=== PATIENT | male | born 1965 | race Caucasian/White ===

== ENCOUNTER 2019-02-12 12:53 | Emergency (ER) | payer MEDICARE, OTHER ==
[~2019-02-12] VITALS: Ht 180.3 cm; Wt 98.6 kg
[2019-02-12] MEDS ORDERED: morphine SULFATE 15 MG TAB.IR PO ONE (14:30)
[2019-02-12] MEDS ORDERED: HYDROmorphone 2 MG/ML, 1ML IM ONE (14:30)
[2019-02-12] MEDS ORDERED: MORP30TA81 PO (14:34)
--- NOTE | 2019-02-12 14:35 | NUR ---
FIRST CONTACT WITH PT. PT REPORTS HE HAS A 10/10 PAIN AND HAS SUFFERED FROM CHRONIC BACK PAIN FOR 20 YEARS. [place]. NASH.
--- NOTE | 2019-02-12 14:45 | NUR ---
PT REPORTS A 10/10 PAIN. PT IS UPSET BECAUSE HE CANNOT FIND A DR TO PRESCRIBE HIM ATIVAN. I ATTEMPTED TO EDUCATE PT REGARDING RESP DEPRESSION FROM COMBINING MORPHINE AND ATIVAN, PT REFUSED TEACHING. NO OBJECTIVE SIGNS OF PAIN.
[2019-02-12] MEDS ORDERED: HYDROmorphone 2 MG/ML, 1ML ONE (15:03)
[2019-02-12 15:08] VITALS: BP 119/89
== END 2019-02-12 15:14 | disposition home or self-care (01) ==
LOC: ED 15:08
DX: M54.5 Low back pain (principal); G89.29 Other chronic pain; F17.200 Nicotine dependence, unspecified, uncomplicated; Z88.9 Allergy status to unspecified drugs, medicaments and biological substances; Z88.6 Allergy status to analgesic agent; Z88.2 Allergy status to sulfonamides; Z88.5 Allergy status to narcotic agent
CPT/HCPCS: 96372; 99283; J1170

== ENCOUNTER 2019-02-20 13:52 | Emergency (ER) | payer OTHER ==
[~2019-02-20] VITALS: Ht 180.3 cm; Wt 99.8 kg
[2019-02-20 15:51] VITALS: BP 149/98
== END 2019-02-20 16:40 | disposition home or self-care (01) ==
LOC: ED 15:20
DX: F41.1 Generalized anxiety disorder (principal); M54.9 Dorsalgia, unspecified; G89.29 Other chronic pain
CPT/HCPCS: 96372; 99284; J1170

== ENCOUNTER 2019-02-23 12:41 | Emergency (ER) | payer OTHER ==
[~2019-02-23] VITALS: Ht 180.3 cm; Wt 99.0 kg
[2019-02-23 12:44] VITALS: BP 170/99
== END 2019-02-23 13:54 | disposition home or self-care (01) ==
LOC: ED 13:40
DX: S39.012A Strain of muscle, fascia and tendon of lower back, initial encounter (principal); G89.29 Other chronic pain; F41.1 Generalized anxiety disorder; X58.XXXA Exposure to other specified factors, initial encounter; Y93.89 Activity, other specified; Y92.89 Other specified places as the place of occurrence of the external cause; Y99.8 Other external cause status
CPT/HCPCS: 96372; 99283; J1170

== ENCOUNTER 2019-02-23 19:47 | Emergency (ER) | payer OTHER ==
[~2019-02-23] VITALS: Ht 180.3 cm; Wt 100.0 kg
[2019-02-23 19:49] VITALS: BP 140/89
== END 2019-02-23 22:47 | disposition home or self-care (01) ==
LOC: ED 22:23
DX: M51.36 Other intervertebral disc degeneration, lumbar region (principal); M54.42 Lumbago with sciatica, left side; M54.41 Lumbago with sciatica, right side; G89.11 Acute pain due to trauma; F41.1 Generalized anxiety disorder; F17.200 Nicotine dependence, unspecified, uncomplicated
CPT/HCPCS: 72148; 96372; 99284; J1170; J2930; Q0162

== ENCOUNTER 2019-02-24 14:07 | Emergency (ER) | payer OTHER ==
[~2019-02-24] VITALS: Ht 180.3 cm; Wt 100.0 kg
[~2019-02-24 14:07] MED LIST: MORP30TA81 PO
--- NOTE | 2019-02-24 14:15 | NUR ---
Patient called for triage, no answer
[2019-02-24 14:22] VITALS: BP 135/94
--- NOTE | 2019-02-24 15:00 | NUR ---
IMPORT AND EXPORT CLERK: PT AMBULATORY TO ED ROOM 23 FROM [facility] IN [facility] AT THIS TIME
[2019-02-24] MEDS ORDERED: HYDROmorphone 2 MG/ML, 1ML IM ONE (16:00)
[2019-02-24] MEDS ORDERED: HYDROmorphone 1 MG/ML, 1ML VIAL ONE (16:02)
[2019-04-24] MEDS ORDERED: LORA-446 PO (18:56)
== END 2019-02-24 16:59 | disposition home or self-care (01) ==
LOC: ED 16:05
DX: M51.16 Intervertebral disc disorders with radiculopathy, lumbar region (principal); M48.061 Spinal stenosis, lumbar region without neurogenic claudication; F41.1 Generalized anxiety disorder; G89.29 Other chronic pain; F17.200 Nicotine dependence, unspecified, uncomplicated
CPT/HCPCS: 93005; 96372; 99283; J1170

== ENCOUNTER 2019-03-09 15:27 | Emergency (ER) | payer OTHER ==
[~2019-03-09] VITALS: Ht 180.3 cm; Wt 102.0 kg
[2019-03-09 15:33] VITALS: BP 173/96
== END 2019-03-09 16:49 | disposition left against medical advice (07) ==
LOC: ED 16:43
DX: M54.5 Low back pain (principal); G89.29 Other chronic pain; F41.1 Generalized anxiety disorder
CPT/HCPCS: 99283

== ENCOUNTER 2019-03-11 22:58 | Emergency (ER) | payer OTHER ==
[~2019-03-11] VITALS: Ht 180.3 cm; Wt 102.1 kg
[2019-03-11 23:04] VITALS: BP 142/96
== END 2019-03-12 03:44 ==
LOC: ED 03-12 03:38
DX: G89.11 Acute pain due to trauma (principal); N50.811 Right testicular pain; N50.812 Left testicular pain; Z72.9 Problem related to lifestyle, unspecified; F17.200 Nicotine dependence, unspecified, uncomplicated; X58.XXXA Exposure to other specified factors, initial encounter; Y93.89 Activity, other specified; Y92.89 Other specified places as the place of occurrence of the external cause; Y99.8 Other external cause status
CPT/HCPCS: 76870; 99284

== ENCOUNTER 2019-06-02 21:56 | Emergency (ER) | payer OTHER ==
[~2019-06-02] VITALS: Ht 180.3 cm; Wt 90.9 kg
[~2019-06-02 21:56] MED LIST changes: +LORA-446 PO
[2019-06-02] MEDS ORDERED: LORazepam 1MG TABLET PO ONE (23:00)
--- NOTE | 2019-06-02 23:00 | NUR ---
PT MEDICATED FOR ANXIETY PER EMAR FOR MRI
[2019-06-02] MEDS ORDERED: GADOTERATE 10 MMOL/20 ML SYR ONE (23:07)
[2019-06-02] MEDS ORDERED: LORazepam 1MG TABLET ONE (23:15)
[2019-06-02 23:20] VITALS: BP 137/82
--- NOTE | 2019-06-02 23:28 | NUR ---
LISANDRO CJ, TRANSFER FROM [facility]. 05/22/19 EPISODE OF BOWEL AND URINE INCONTENENCE. 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 PAIN BELOW THE WAIST 04/07 Addendum: 06/03/19 at 0052 by KEISHA LISANDRO COR[place], TRANSFER FROM [facility]. 05/22/19 EPISODE OF BOWEL AND URINE INCONTENENCE. 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 PAIN BELOW THE WAIST 04/07
--- NOTE | 2019-06-02 23:29 | NUR ---
BLADDER SCAN INDICATED VOLUME >700ML
[2019-06-03] MEDS ORDERED: ACETAMINOPHEN 325 MG TABLET PO ONE (00:30)
[2019-06-03] MEDS ORDERED: ACETAMINOPHEN 325 MG TABLET ONE (00:32)
--- NOTE | 2019-06-03 00:40 | NUR ---
PT STATES HE IS UNHAPPY WITH DR DUPONT ORDERS. PT HAS REQUESTED TO SPEAK WITH A DIFFERENT PHYSICIAN. ER MD LOWERY NOTIFIED. PT HAS REFUSED TYLENOL AND REFUSED INSERTION OF A MEJIA CATHETER. PT STATES HE WANTS TO LEAVE [place]. PAPER WORK PROVIDED.
--- NOTE | 2019-06-03 00:50 | NUR ---
PT SIGNED AMA PAPERWORK. PT WAS VERY UNHAPPY WITH DR LOWERY AND MADE A NOTE ON THE AMA PAPERWORK TO THAT AFFECT. PT ABULATORY WITH A WALKER TO DISCHARGE DESK WITH A STEADY GAIT. PT PROVIDED TAXI CAB VOUCHER BACK TO HIS HOME RESIDENCE.
== END 2019-06-03 00:56 | disposition home or self-care (01) ==
LOC: ED 06-03 00:32
DX: M51.16 Intervertebral disc disorders with radiculopathy, lumbar region (principal); M48.061 Spinal stenosis, lumbar region without neurogenic claudication; R33.9 Retention of urine, unspecified; F17.210 Nicotine dependence, cigarettes, uncomplicated
CPT/HCPCS: 72158; 99284; A9575

== ENCOUNTER 2019-06-05 10:31 | Inpatient (IN) | payer OTHER ==
[~2019-06-05] VITALS: Ht 180.3 cm; Wt 94.7 kg
[2019-06-05] MEDS ORDERED: BISACODYL 10 MG SUPP PR PRN (13:00)
[2019-06-05] MEDS ORDERED: ONDANSETRON ODT 4 MG PO PRN (13:00)
[2019-06-05] MEDS ORDERED: DOCUSATE 100 MG CAPSULE PO PRN (13:00)
[2019-06-05] MEDS ORDERED: ACETAMINOPHEN 325 MG TABLET PO PRN (13:00)
[2019-06-05] MEDS ORDERED: POLYETHYLENE GLYCOL 17 GM PACKET PO PRN (13:00)
[2019-06-05] MEDS ORDERED: LORA2TAB99 PO (15:06)
[2019-06-05] MEDS ORDERED: OXYC30TA PO (15:06)
[2019-06-05] MEDS ORDERED: MORP100T27 PO (15:06)
[2019-06-05] MEDS ORDERED: SERT50TA PO (15:06)
[2019-06-05 15:08] VITALS: BP 122/89
[2019-06-05 15:51] LABS: MICROSCOPIC NOT IND
[2019-06-05 15:54] LABS: CULTURE INDICATED? NO
[2019-06-05] MEDS ORDERED: OXYcodone 5 MG/5 ML ORAL.SOL UDC PO PRN (18:00)
[2019-06-05] MEDS: LORazepam 1MG TABLET PO PRN (18:51)
[2019-06-05 19:09] VITALS: BP 134/80
[2019-06-05 19:10] LABS: CHOL/HDL RATIO 4.3; FREE T4 (FREE THYROXINE) 0.99 ng/dL (0.76-1.46); LDL/HDL RATIO 2.6 (0.5-3.0)
[2019-06-05] MEDS: OXYcodone/APAP 5/325MG TABLET PO PRN (19:32)
[2019-06-06] MEDS: OXYcodone/APAP 5/325MG TABLET PO PRN ×2 (02:40→09:22)
[2019-06-06] MEDS: LORazepam 1MG TABLET PO PRN ×3 (02:40→17:52)
[2019-06-06 07:45] VITALS: BP 125/85
[2019-06-06] MEDS ORDERED: SERTRALINE 50MG TABLET PO SCH (09:00)
[2019-06-06] MEDS: NICOTINE 7 MG/24 HR PATCH.TD24 TD SCH (09:21)
[2019-06-06] MEDS ORDERED: OXYcodone/APAP 5/325MG TABLET PO PRN (14:00)
[2019-06-06] MEDS: OXYcodone/APAP 10/325MG TABLET PO PRN ×2 (14:21→20:31)
[2019-06-06 18:07] LABS: BASOPHILS # (AUTO) 0.09 x10^3/uL (0-0.1); BASOPHILS % (AUTO) 1 % (0-1); EOSINOPHILS # (AUTO) 0.12 x10^3/uL (0-0.4); EOSINOPHILS % (AUTO) 2 % (1-7); LYMPHOCYTES # (AUTO) 2.16 x10^3/uL (1-3.4); LYMPHOCYTES % (AUTO) 31 % (22-44); MD NO; MEAN CORPUSCULAR HEMOGLOBIN 30.5 pg (27.5-34.5); MEAN CORPUSCULAR HGB CONC 33.1 g/dL (33.2-36.2); MEAN CORPUSCULAR VOLUME 92.2 fL (81-97); MEAN PLATELET VOLUME 7.4 fL (7.4-10.4); MONOCYTES # (AUTO) 0.56 x10^3/uL (0.2-0.8); MONOCYTES % (AUTO) 8 % (2-9); NEUTROPHILS # (AUTO) 4.07 x10^3/uL (1.8-6.8); NEUTROPHILS % (AUTO) 58 % (42-75); PLATELET COUNT 390 x10^3/uL (130-400); RED BLOOD COUNT 4.88 x10^6/uL (4.38-5.82); RED CELL DISTRIBUTION WIDTH 14.8 % (9.4-14.8)
[2019-06-06 18:19] LABS: ANION GAP 4 mmol/L (5-15); CALCIUM 8.8 mg/dL (8.5-10.1); CHLORIDE 110 mmol/L (98-107); CREATININE 0.91 mg/dL (0.7-1.3)
[2019-06-06 19:26] VITALS: BP 132/70
[2019-06-06] MEDS: TRAZODONE 100MG TABLET PO SCH (21:25)
[2019-06-07] MEDS: LORazepam 1MG TABLET PO PRN ×2 (04:13→12:23)
[2019-06-07] MEDS: OXYcodone/APAP 10/325MG TABLET PO PRN ×4 (04:13→22:56)
[2019-06-07 07:35] VITALS: BP 102/67
[2019-06-07] MEDS: SERTRALINE 100MG TABLET PO SCH (08:35)
[2019-06-07] MEDS: NICOTINE 7 MG/24 HR PATCH.TD24 TD SCH (08:52)
[2019-06-07 19:51] VITALS: BP 118/75
[2019-06-07] MEDS: TRAZODONE 100MG TABLET PO SCH (20:18)
[2019-06-08] MEDS: OXYcodone/APAP 10/325MG TABLET PO PRN ×3 (06:06→18:04)
[2019-06-08] MEDS: LORazepam 1MG TABLET PO PRN ×3 (06:06→18:02)
[2019-06-08 07:47] VITALS: BP 117/76
[2019-06-08] MEDS: SERTRALINE 100MG TABLET PO SCH (08:46)
[2019-06-08] MEDS: NICOTINE 7 MG/24 HR PATCH.TD24 TD SCH (08:47)
[2019-06-08 19:32] VITALS: BP 106/66
[2019-06-08] MEDS: TRAZODONE 100MG TABLET PO SCH (20:06)
[2019-06-09] MEDS: OXYcodone/APAP 10/325MG TABLET PO PRN ×4 (01:46→19:21)
[2019-06-09] MEDS: LORazepam 1MG TABLET PO PRN ×3 (03:57→19:21)
[2019-06-09 07:06] VITALS: BP 124/75
[2019-06-09] MEDS: SERTRALINE 100MG TABLET PO SCH (08:24)
[2019-06-09] MEDS: NICOTINE 7 MG/24 HR PATCH.TD24 TD SCH (08:26)
[2019-06-09 19:46] VITALS: BP 108/73
[2019-06-09] MEDS: TRAZODONE 100MG TABLET PO SCH (19:58)
[2019-06-09] MEDS: PREGABALIN 25 MG CAPSULE PO SCH (19:59)
[2019-06-10] MEDS: OXYcodone/APAP 10/325MG TABLET PO PRN ×2 (03:48→09:45)
[2019-06-10] MEDS: LORazepam 1MG TABLET PO PRN ×2 (03:48→10:56)
[2019-06-10 07:07] VITALS: BP 133/79
[2019-06-10] MEDS: NICOTINE 7 MG/24 HR PATCH.TD24 TD SCH ×2 (09:00→09:07)
[2019-06-10] MEDS: PREGABALIN 25 MG CAPSULE PO SCH ×2 (09:00→09:07)
[2019-06-10] MEDS: SERTRALINE 100MG TABLET PO SCH (09:07)
== END 2019-06-10 14:54 | disposition home or self-care (01) | DRG 885 ==
LOC: 3E 15:02
PROVIDERS: ADMIT Psychiatry & Neurology Psychosomatic Medicine; ATTEND Psychiatry & Neurology Psychosomatic Medicine
DX: F33.2 Major depressive disorder, recurrent severe without psychotic features (principal); F11.20 Opioid dependence, uncomplicated; F41.1 Generalized anxiety disorder; F43.10 Post-traumatic stress disorder, unspecified; Z71.89 Other specified counseling; Z88.2 Allergy status to sulfonamides; Z88.8 Allergy status to other drugs, medicaments and biological substances; G47.00 Insomnia, unspecified; G89.29 Other chronic pain; M54.9 Dorsalgia, unspecified; M48.00 Spinal stenosis, site unspecified; R45.850 Homicidal ideations; Z79.899 Other long term (current) drug therapy
CPT/HCPCS: 36415; 71045; 80048; 80061; 81003; 82140; 82607; 84439; 84443; 85025; 93005

== ENCOUNTER 2019-06-11 00:56 | Emergency (ER) | payer OTHER ==
[~2019-06-11] VITALS: Ht 180.3 cm; Wt 97.8 kg
[~2019-06-11 00:56] MED LIST changes: +LORA2TAB99 PO; +MORP100T27 PO; +OXYC30TA PO; +SERT50TA PO
--- NOTE | 2019-06-11 01:08 | NUR ---
THE PT COMES IN TO NIGHT FOR C/O ONGOING CHR NERVE PAIN TO HIS CL FEET. THE PT REPORTS THE ONLY THING THAT HELPS HIM IS ORAL MORPHINE AND ATIVAN BUT THAT "I HAVE BEEN CUT OFF SINCE MOVING HERE FROM [place]". Addendum: 06/11/19 at 0112 by PSEGER THE PT REPORTS THE ONLY THING HE CAN TAKE IS NARCOTIC PAIN MEDS BECAUSE NEUROTIN AND LYRICA CAUSE HIM TO BE SUICIDAL.
--- NOTE | 2019-06-11 01:11 | NUR ---
CL FT CMS +. WARM. CAMPOS. + PULSES. CL FT WRAPPED IN A WARM BLANKET.
[2019-06-11] MEDS ORDERED: KETOROLAC 60 MG/2 ML ONE (01:19)
[2019-06-11] MEDS ORDERED: LORazepam 0.5MG TABLET ONE ×2 (01:19→02:02)
[2019-06-11] MEDS ORDERED: KETOROLAC 30 MG/1 ML IM ONE (01:30)
[2019-06-11] MEDS ORDERED: LORazepam 0.5MG TABLET PO ONE ×2 (01:30→02:00)
[2019-06-11 02:24] VITALS: BP 165/85
== END 2019-06-11 02:25 | disposition home or self-care (01) ==
LOC: ED 02:00
DX: G62.9 Polyneuropathy, unspecified (principal); F41.1 Generalized anxiety disorder; G89.29 Other chronic pain; F32.9 Major depressive disorder, single episode, unspecified
CPT/HCPCS: 96372; 99283; J1885

== ENCOUNTER 2019-06-11 06:15 | Emergency (ER) | payer OTHER ==
[~2019-06-11] VITALS: Ht 175.3 cm; Wt 90.0 kg
[2019-06-11 06:21] VITALS: BP 191/92
[2019-06-11] MEDS ORDERED: MAALOX/HYOSCYAMINE/LIDOCAINE 45 ML BTL PO ONE (07:30)
[2019-06-11] MEDS ORDERED: MAALOX/HYOSCYAMINE/LIDOCAINE 45 ML BTL ONE (07:47)
== END 2019-06-11 08:46 | disposition home or self-care (01) ==
LOC: ED 08:20
DX: K92.0 Hematemesis (principal); G89.29 Other chronic pain; F17.200 Nicotine dependence, unspecified, uncomplicated; Z90.49 Acquired absence of other specified parts of digestive tract
CPT/HCPCS: 99283

== ENCOUNTER 2019-06-12 19:56 | Emergency (ER) | payer OTHER ==
[~2019-06-12] VITALS: Ht 180.3 cm; Wt 90.0 kg
[2019-06-12] MEDS ORDERED: KETOROLAC 30 MG/1 ML IM ONE (21:30)
[2019-06-12] MEDS ORDERED: DIAZEPAM 5 MG TABLET PO ONE (21:30)
[2019-06-12] MEDS ORDERED: DEXAMETHASONE 4 MG TABLET PO ONE (22:00)
[2019-06-12] MEDS ORDERED: DEXAMETHASONE 4 MG TABLET ONE (22:33)
[2019-06-12] MEDS ORDERED: DIAZEPAM 5 MG TABLET ONE (22:33)
[2019-06-12 22:35] VITALS: BP 132/90
--- NOTE | 2019-06-12 22:39 | NUR ---
PT MEDICATED PER EMAR
== END 2019-06-12 23:03 | disposition home or self-care (01) ==
LOC: ED 20:45
DX: M43.06 Spondylolysis, lumbar region (principal)
CPT/HCPCS: 99283

== ENCOUNTER 2019-07-09 02:52 | Emergency (ER) | payer OTHER ==
[~2019-07-09] VITALS: Ht 180.3 cm; Wt 95.8 kg
[2019-07-09] MEDS ORDERED: DOXY50CA42 PO (02:58)
[2019-07-09] MEDS ORDERED: TRAM100T33 PO (02:58)
[2019-07-09] MEDS ORDERED: LORA-446 PO (02:58)
--- NOTE | 2019-07-09 03:44 | NUR ---
Break RN: re-evaluation done. patient discharged with instruction. no pain medication given. [facility] notified for transport. ETA [id number]
--- NOTE | 2019-07-09 04:04 | NUR ---
PT DOES NOT HAVE CAUDA EQUINA LIKE HE STATES HE DOES.
--- NOTE | 2019-07-09 04:29 | NUR ---
DESPITE PTS "PARALYSIS" PT AMBULATORY WITH STEADY GAIT WITH HIS WALKER OUT TO AMBULANCE AND CLIMBING IN TO AMBULANCE.
[2019-07-09 04:30] VITALS: BP 129/74
== END 2019-07-09 04:32 ==
LOC: ED 04:26
DX: M51.36 Other intervertebral disc degeneration, lumbar region (principal); G89.29 Other chronic pain
CPT/HCPCS: 99281

== ENCOUNTER 2019-08-25 13:19 | Emergency (ER) | payer MEDICARE, OTHER ==
[~2019-08-25] VITALS: Ht 180.3 cm; Wt 95.0 kg
[~2019-08-25 13:19] MED LIST changes: +DOXY50CA42 PO; +TRAM100T33 PO
[2019-08-25 13:21] VITALS: BP 134/71
--- NOTE | 2019-08-25 13:25 | NUR ---
BIB [facility] FOR R KNEE PAIN X 30 DAYS S/P FALL IN HOSPITAL FROM TRIPPING OVER A WALKER.
[2019-08-25] MEDS ORDERED: ACETAMINOPHEN 500 MG TABLET ONE (13:28)
--- NOTE | 2019-08-25 13:29 | NUR ---
THIS RN BEDSIDE TO MEDICATE PT WITH TYLENOL, PER PT HE IS ALLERGIC, RXN IS VOMITTING, OFFERED ZOFRAN. PT DECLINED MEDICATIONS. PT TO RADIOLOGY WITH AGENT TELEGRAPHER.
[2019-08-25] MEDS ORDERED: ACETAMINOPHEN 500 MG TABLET PO ONE (13:30)
--- NOTE | 2019-08-25 13:31 | NUR ---
ALLERGIES UPDATED IN EMR.
[2019-08-25] MEDS ORDERED: OXYcodone 5 MG/5 ML ORAL.SOL UDC ONE (14:00)
[2019-08-25] MEDS ORDERED: OXYcodone 5 MG/5 ML ORAL.SOL UDC PO ONE (14:00)
--- NOTE | 2019-08-25 14:07 | NUR ---
Patient/Caregiver given discharge instructions and they have confirmed that they understand the instructions. Patient ambulatory with steady gait. KNEE IMMOBILIZER PLACED AND GIVEN CRUTCHES.
--- NOTE | 2019-08-25 14:07 | NUR ---
PT MEDICATED PER ORDERS.
--- NOTE | 2019-08-25 14:16 | NUR ---
PT GIVEN BUS PASS, REFUSED IMMOBILIZER, AND AMBULATED WITHOUT CRUTCHES TO DISCHARGE DESK.
== END 2019-08-25 14:18 | disposition home or self-care (01) ==
LOC: ED 14:12
DX: S83.91XA Sprain of unspecified site of right knee, initial encounter (principal); F17.200 Nicotine dependence, unspecified, uncomplicated; W18.39XA Other fall on same level, initial encounter; Y93.89 Activity, other specified; Y92.89 Other specified places as the place of occurrence of the external cause; Y99.8 Other external cause status
CPT/HCPCS: 29505; 99283